=== PATIENT | female | born 1960 | race Caucasian/White ===

== ENCOUNTER 2018-05-08 23:14 | Inpatient (IN) | payer MEDICAID, SELFPAY ==
[~2018-05-08] VITALS: Ht 162.6 cm; Wt 92.7 kg
[2018-05-08] MEDS ORDERED: ASPI1TAB15 (23:26)
[2018-05-08] MEDS ORDERED: BUPR1TAB53 (23:26)
[2018-05-08] MEDS ORDERED: HYDR50CA2 (23:26)
[2018-05-08] MEDS ORDERED: SIMV40TA2 (23:26)
[2018-05-08] MEDS ORDERED: OMEP40CA2 (23:26)
[2018-05-08] MEDS ORDERED: LOSARTAN/HCT (23:26)
[2018-05-08] MEDS ORDERED: FLUOXETINE (23:26)
[2018-05-08] MEDS ORDERED: LAMO100T (23:26)
[2018-05-09] MEDS ORDERED: diazePAM 10 MG TAB PO ONE (00:30)
[2018-05-09] MEDS ORDERED: NORCO, ANEXSIA 5/325MG TABLET (HYDROcodone/ACETAMINOPHEN) PO ONE (00:30)
[2018-05-09] MEDS ORDERED: ISOVUE-370 76% 100ML VIAL (Q9967) As Ordered ONE (01:57)
[2018-05-09] MEDS ORDERED: MORPHINE 4 MG/ML 1ML VIAL/SYRINGE (J2270) IV ONE (02:00)
[2018-05-09 02:35] LABS: BASO % 0.3 % (0.0-1.0); EOS # 0.1 10^3/uL (0.0-0.50); EOS % 1.3 % (0.0-3.0); HEMATOCRIT 42.4 % (36.0-47.0); HEMOGLOBIN 14.3 g/dl (12.0-15.5); LYMPH # 1.6 10^3/uL (1.5-4.5); LYMPH % 15.1 % (24.0-44.0); MEAN CORPUSCULAR HEMOGLOBIN 30.4 pg (27.0-33.0); MEAN CORPUSCULAR HGB CONC 33.7 g/dl (32.0-36.5); MONO # 0.5 10^3/uL (0.0-0.8); MONO % 5.2 % (0.0-5.0); NEUTROPHILS % 77.7 % (36.0-66.0); PLATELET COUNT, AUTOMATED 172 10^3/uL (150-450); RED BLOOD COUNT 4.71 10^6/uL (4.00-5.40); WHITE BLOOD COUNT 10.3 10^3/uL (4.0-10.0)
[2018-05-09 02:52] LABS: BLOOD UREA NITROGEN 12 MG/DL (7-18); C REACTIVE PROTEIN QUANTITATIV 1.41 MG/DL (0.00-0.30); CALCIUM LEVEL 8.7 MG/DL (8.5-10.1); CARBON DIOXIDE LEVEL 25 MEQ/L (21-32); CHLORIDE LEVEL 111 MEQ/L (98-107); CREATININE FOR GFR 0.52 MG/DL (0.55-1.30); GLOMERULAR FILTRATION RATE > 60.0 (>51); GLUCOSE, FASTING 115 MG/DL (70-100); POTASSIUM SERUM 3.9 MEQ/L (3.5-5.1); SODIUM LEVEL 143 MEQ/L (136-145)
[2018-05-09] MEDS ORDERED: LOSARTAN 50 MG TAB PO ONE (04:00)
[2018-05-09] MEDS ORDERED: hydroCHLOROthiazide 12.5 MG CAPSULE PO ONE (04:00)
[2018-05-09] MEDS: MORPHINE 4 MG/ML 1ML VIAL/SYRINGE (J2270) IV PRN ×4 (05:13→19:42)
[2018-05-09] MEDS ORDERED: LAMO100T PO (05:48)
[2018-05-09] MEDS ORDERED: ALEV220T26 PO (05:48)
[2018-05-09] MEDS ORDERED: LOSA100T8 PO (05:48)
[2018-05-09] MEDS ORDERED: ASPI81TAEC PO (05:48)
[2018-05-09] MEDS ORDERED: OMEP40CA2 PO (05:48)
[2018-05-09] MEDS ORDERED: SIMV40TA2 PO (05:48)
[2018-05-09] MEDS ORDERED: HYDR50CA2 PO (05:48)
[2018-05-09] MEDS ORDERED: PROZ10CA7 PO (05:48)
[2018-05-09] MEDS ORDERED: BUPR15TASR PO (05:48)
[2018-05-09] MEDS ORDERED: dexameTHASONE 20 MG/5 ML VIAL (J1100) IV ONE (06:00)
[2018-05-09] MEDS ORDERED: hydrALAZINE INJ 20 MG/ML VIAL IV ONE (06:00)
[2018-05-09] MEDS ORDERED: PIPERACILLIN/TAZOBACTAM SOD 3.375 GM in D5W MINI-BAG PLUS 50 ML IV ONE (06:00)
--- NOTE | 2018-05-09 08:55 | REP ---
CT CERVICAL SPINE WITHOUT CONTRAST: HISTORY: Tenderness. COMPARISON: MR 07/05/2015 There is no acute fracture or subluxation. Disc bulges are present at the C2-3 and C4-5 levels. Disc bugles with associated osteophyte formation are present at the C5-6 and C6-7 levels. There is minimal narrowing of the spinal canal. Uncinate process hypertrophy is present at the C5-6 and C6-7 levels. This produces minimal to mild narrowing of the neural foramina. The remaining neural foramina area patent. The C5-6 and C6-7 intervertebral discs are decreased in height consistent with disc degeneration. Decreased attenuation consistent with edema is present in the retropharyngeal space. There is no mass effect on the renee- and hypopharynx. A 5 mm focus of decreased attenuation is present in the right thyroid lobe. This most likely represents a cyst. IMPRESSION: 1. There is no acute fracture or subluxation. 2. There is cervical spondylosis at the C2-3 and C4-5 through C6-7 levels. 3. There is edema on the retropharyngeal space. There is no mass effect on the renee- and hypopharynx . Electronically Signed by Randell Mariee MD 05/09/2018 09:23 A
[2018-05-09] MEDS ORDERED: LOSARTAN 50 MG TAB PO SCH (09:00)
[2018-05-09] MEDS ORDERED: hydroCHLOROthiazide 12.5 MG CAPSULE PO SCH (09:00)
--- NOTE | 2018-05-09 09:04 | REP ---
CT NECK WITH CONTRAST: HISTORY: Prevertebral fluid. CONTRAST: Isovue 370, 75 mL. Edema is present in the retropharyngeal space at the level of the renee- and hypopharynx. There is no mass effect in the renee- or hypopharynx. The nasopharynx, larynx, and subglottic trachea are normal in appearance. The salivary glands are normal in size and density. A 5 mm hypodensity is present in the right thyroid lobe. This most likely represents a cyst. The left thyroid lobe is normal in size and density. Small lymph nodes less than 1 cm in size are present in the internal jugular chains, posterior triangles, submandibular and submental areas. Atherosclerotic calcification is present at the left carotid bifurcation. The right internal carotid artery courses medially in the retropharyngeal space, a normal variant. Degenerative change is present in the cervical spine. The lung apices are clear. The visualized sinuses are clear. IMPRESSION: 1. There is no neck mass or adenopathy. 2. There is edema in the retropharyngeal space at the level of the renee- and hypopharynx. There is no mass effect. Electronically Signed by Randell Mariee MD 05/09/2018 09:23 A
[2018-05-09] MEDS ORDERED: ACETAMINOPHEN TAB 650MG DOSE (2X325MG) PO PRN (11:00)
[2018-05-09] MEDS ORDERED: ONDANSETRON 4MG/2ML VIAL (J2405) IV PRN (11:00)
[2018-05-09] MEDS ORDERED: hydrOXYzine 50 MG TAB PO PRN (11:15)
[2018-05-09] MEDS ORDERED: PILL CRUSHER/CUTTER 1 EACH XX PRN ×2 (11:30→16:45)
[2018-05-09 12:25] VITALS: BP 152/98
[2018-05-09] MEDS: SIMVASTATIN 40 MG TAB PO SCH (13:33)
[2018-05-09] MEDS: ASPIRIN 81 MG ENTERIC TAB PO SCH (13:33)
[2018-05-09] MEDS: OMEPRAZOLE 20 MG CAP PO SCH (13:33)
[2018-05-09] MEDS: ENOXAPARIN 40 MG/0.4 ML SYRINGE (J1650) SC SCH (13:34)
[2018-05-09 13:45] VITALS: BP 158/88
[2018-05-09] MEDS: FLUoxetine 10 MG CAP PO SCH (14:10)
[2018-05-09] MEDS: buPROPion **SR TABLET** (ZYBAN) 150MG PO SCH ×2 (14:10→21:19)
[2018-05-09] MEDS: lamoTRIgine 100MG TAB PO SCH (14:11)
[2018-05-09] MEDS: hydrOXYzine 50 MG TAB PO SCH (14:11)
[2018-05-09] MEDS: LIDOCAINE 5% (LIDODERM) PATCH TD SCH (14:16)
[2018-05-09] MEDS: tiZANidine 4 MG TAB PO SCH ×3 (14:16→21:19)
--- NOTE | 2018-05-09 15:55 | HPE ---
DATE OF ADMISSION: 05/09/2018 PRIMARY CARE PROVIDER: Joaquina Roe at [facility] CHIEF COMPLAINT: Sore neck and difficulty swallowing. HISTORY OF PRESENT ILLNESS: This is a 57-year-old female who presented to the emergency department last night she was unable to move her neck. She states that Saturday night she felt her neck was very stiff. She took some Aleve and went to bed. when she woke up she could not move her neck. She states the pain was atrocious. She took Aleve however that did not work so she brought herself the emergency room. She states that with this she has been having pain when she moves her jaw and pain down the right side of her head and into her neck, as well as an on and off runny and stuffy nose. She has also had a sore throat for a week and has caught herself gagging multiple times. She has had some dysphasia, as well as difficulty swallowing with a decreased appetite and some nausea for this time as well. She states that occasionally she will feel something like a lump on the side of her right neck; however, it comes and goes. She denies any new sick contacts, recent dental work as she has dentures. She denies any new foods or recent exposures. She denies any fevers, chills or night sweats, vomiting, constipation, diarrhea or abdominal pain. REVIEW OF SYSTEMS: CONSTITUTIONAL: Denies any fevers, chills, unexplained weight loss. Denies night sweats. HEENT: Positive for right sided head pain, on and off stuffy / runny nose, as well as odynophagia and dysphagia. Denies any epistaxis, sinus pain, tinnitus, changes to her vision or epistaxis. She is edentulous. CARDIOVASCULAR: Denies any chest pain, paroxysmal nocturnal dyspnea, orthopnea, edema, palpitation or claudication. RESPIRATORY: Positive for cough with phlegm production, denies any sputum production, no hemoptysis, wheezes or shortness of breath. GASTROINTESTINAL: Positive for difficulty swallowing, as well as nausea. Denies any abdominal pain, vomiting, obstipation, constipation, diarrhea, hematemesis, hematochezia, melena or tenesmus. GENITOURINARY: Denies any incontinence, dysuria, hematuria, nocturia, polyuria. MUSCULOSKELETAL: Positive for right neck pain and stiffness. Denies any other joint swelling, crepitus or decreased range of motion. She does have some laxity to her jaw. INTEGUMENTARY: Denies any new pruritus, rashes, striae, lesions, wounds or erythema. NEUROLOGIC: Denies any changes to sight, smell, hearing, taste, history of seizures, paresthesias, numbness or new motor weakness. She does have a history of headaches. PSYCHIATRIC: Positive for history of bipolar disorder with anxiety and depression. Denies any new paranoia, anhedonia or episodes of betsy. ENDOCRINE: Denies any mood swings, diarrhea, tremor, palpitations or visual disturbances. Denies any constipation, dry skin. No polydipsia. HEMATOLOGIC: Denies any and anemia, purpura, petechiae or easy bruising / bleeding. LYMPHATICS: Denies any new lumps or bumps anywhere besides the right side of her neck where she will have a swelling that comes and goes. PAST MEDICAL HISTORY: 1. Hyperlipidemia. 2. Headaches. 3. Hypertension. 4. Bipolar / anxiety / depression. 5. Gastroesophageal reflux disease. HOME MEDICATIONS: - aspirin 81 mg by mouth daily - simvastatin 40 mg by mouth daily - Aleve 440 mg by mouth twice a day as needed - losartan 100 mg / hydrochlorothiazide 12.5 mg by mouth daily - lamotrigine 200 mg by mouth daily - bupropion 150 mg by mouth twice a day - paroxetine 30 mg by mouth daily - hydroxyzine 50 mg by mouth daily and 50 mg by mouth at night - omeprazole 40 mg by mouth daily PAST SURGICAL HISTORY: The patient had a tubal ligation 2 years ago and a gastric sleeve in 2011. ALLERGIES: LISINOPRIL. SOCIAL HISTORY: The patient is a current smoker. She smokes less than one-quarter of a pack per day; however, used to smoke one and half packs per day for about 40 years giving her a 60 pack-year smoking history. She is and lives with her and her dog who is Spaniel mix. She denies any alcohol or drug use. She denies any recent travel. 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 PHYSICAL EXAMINATION: Vitals: Temperature is 98.3, pulse is 80 and regular, respiratory rate 17, blood pressure 164/103, pulse oximetry is 95% on room air. General: Middle-aged female in no acute distress lying on the stretcher. She does look somewhat fatigued. HEENT: Atraumatic, normocephalic. Extraocular eye movements are intact. Pupils equal, round and reactive to light. Posterior pharynx is free of exudate or erythema and the uvula rises symmetrically. The patient is edentulous. Tympanic membranes are visualized bilaterally and have a good cone of light without erythema or exudate behind them. There is some cerumen in the external auditory canals bilaterally. NECK: Hypertonicity is noted in the right side. I do not appreciate any lymphadenopathy. The head and neck has no appreciable masses. There is no thyromegaly. LUNGS: Clear to auscultation bilaterally. No wheezes, rhonchi or rales. HEART: Regular rate and rhythm. No murmurs, gallops or rubs. ABDOMEN: Obese, soft, normoactive bowel sounds. No tenderness to palpation in all four quadrants. BACK: Symmetric and straight. No abnormalities. No costovertebral angle tenderness bilaterally. EXTREMITIES: No clubbing, cyanosis or edema. Pulses are good in all four extremities. NEUROLOGIC: Awake, alert and oriented times three. Cranial nerves II-XII grossly intact. Sensation is intact bilaterally without any focal neurological deficits. Muscle strength is 5/5 in all four extremities. LABORATORY DATA: CBC: WBC 10.3, hemoglobin 14.3, hematocrit 42.4, platelets 172. Differential 78% neutrophils, 15% lymphocytes, 5% monocytes. Chemistry: Sodium 143, potassium 3.9, chloride 111, carbon dioxide 25, BUN 12, creatinine 0.52, fasting glucose 115, CRP 1.41. Microbiology: Group A Streptococcus screen is pending. Blood cultures times two are pending. IMAGING STUDIES: CT of the spine without contrast showed a 5 mm right thyroid cyst, cervical spondylosis at C2-C3, C4-C5 through C6-7, as well as a retropharyngeal edema without mass effect. CT neck showed a 5 mm right thyroid cyst, as well as retropharyngeal edema at the level of the oropharynx and hypopharynx without mass effect. ASSESSMENT: This is a 57-year-old female who is being admitted with retropharyngeal edema. She also has next stiffness and odynophagia. PLAN: 1. Retropharyngeal edema. Dr. Wilder Anthony from ENT has been consulted and we appreciate his help. For now, we will put the patient on unison every 6 hours, as most likely culprit for this may be mouth jocelynn, infectious. Differential also includes inflammatory process. I have given her pain medications and put her on a soft mechanical diet for now. 2. Neck pain. Possibly related to the retropharyngeal edema, but she also has hypertonicity of her neck muscles on physical exam. Her neck pain and stiffness may be musculoskeletal in origin, we will provide her with a muscle relaxer as well as a heat pad. 3. Tobacco dependence. Nicotine patch was offered and refused, as the patient is trying to quit smoking. 4. Hypertension. Continue the patient's home medications of losartan and hydrochlorothiazide. 5. Headaches. We will give the patient Tylenol as needed and morphine if her neck stiffness is very severe. 6. Hyperlipidemia. Continue her statin. 7. Bipolar / anxiety / depression. Continue her home lamotrigine, bupropion, fluoxetine, and hydroxyzine. 8. Gastroesophageal reflux disease. Continue the patient on omeprazole. 9. Deep vein thrombosis (DVT) prophylaxis. Lovenox. DISPOSITION: The patient will be admitted to Dr. Walters's service as an inpatient as we expect more than two midnights. CODE STATUS: The patient is FULL CODE. My faculty preceptor for this patient encounter was physically present during the encounter and was fully available. All aspects of the patient interview, examination, medical decision making process, and medical care plan development were reviewed and approved by the faculty preceptor. The faculty preceptor is aware and concurs with the plan as stated in the body of this note and will attest to such by his/her co-signature.
[2018-05-09 16:00] VITALS: BP 150/80
[2018-05-09] MEDS: AMPICILLIN SOD/SULBACTAM SOD 3 GM in D5W MINI-BAG PLUS 100 ML IV SCH (18:44)
[2018-05-09 20:00] VITALS: BP 138/89
[2018-05-09] MEDS ORDERED: **NOTE PATIENT COMMENT** MISC XX SCH (21:00)
[2018-05-10] VITALS: BP 127/85
[2018-05-10 04:00] VITALS: BP 164/91
[2018-05-10] MEDS: MORPHINE 4 MG/ML 1ML VIAL/SYRINGE (J2270) IV PRN ×2 (04:01)
[2018-05-10] MEDS: AMPICILLIN SOD/SULBACTAM SOD 3 GM in D5W MINI-BAG PLUS 100 ML IV SCH ×5 (06:39→18:21)
[2018-05-10 07:18] LABS: HEMATOCRIT 41.3 % (36.0-47.0); MEAN CORPUSCULAR HEMOGLOBIN 29.9 pg (27.0-33.0); MEAN CORPUSCULAR HGB CONC 33.9 g/dl (32.0-36.5); MEAN CORPUSCULAR VOLUME 88.1 fl (80.0-96.0); PLATELET COUNT, AUTOMATED 179 10^3/uL (150-450); RED BLOOD COUNT 4.69 10^6/uL (4.00-5.40); WHITE BLOOD COUNT 16.8 10^3/uL (4.0-10.0)
[2018-05-10 07:49] LABS: BLOOD UREA NITROGEN 10 MG/DL (7-18); CALCIUM LEVEL 8.9 MG/DL (8.5-10.1); CARBON DIOXIDE LEVEL 27 MEQ/L (21-32); CHLORIDE LEVEL 107 MEQ/L (98-107); CREATININE FOR GFR 0.59 MG/DL (0.55-1.30); GLOMERULAR FILTRATION RATE > 60.0 (>51); GLUCOSE, FASTING 102 MG/DL (70-100); POTASSIUM SERUM 3.7 MEQ/L (3.5-5.1); SODIUM LEVEL 143 MEQ/L (136-145)
[2018-05-10 08:00] VITALS: BP 169/89
[2018-05-10] MEDS: hydroCHLOROthiazide 12.5 MG CAPSULE PO SCH (08:33)
[2018-05-10] MEDS: ASPIRIN 81 MG ENTERIC TAB PO SCH (08:33)
[2018-05-10] MEDS: lamoTRIgine 100MG TAB PO SCH (08:33)
[2018-05-10] MEDS: FLUoxetine 10 MG CAP PO SCH (08:33)
[2018-05-10] MEDS: hydrOXYzine 50 MG TAB PO SCH (08:34)
[2018-05-10] MEDS: SIMVASTATIN 40 MG TAB PO SCH (08:34)
[2018-05-10] MEDS: OMEPRAZOLE 20 MG CAP PO SCH (08:34)
[2018-05-10] MEDS: ENOXAPARIN 40 MG/0.4 ML SYRINGE (J1650) SC SCH (08:35)
[2018-05-10] MEDS: LIDOCAINE 5% (LIDODERM) PATCH TD SCH (08:35)
[2018-05-10] MEDS: LOSARTAN 50 MG TAB PO SCH (08:35)
[2018-05-10] MEDS: tiZANidine 4 MG TAB PO SCH ×4 (08:35→20:39)
[2018-05-10] MEDS: buPROPion **SR TABLET** (ZYBAN) 150MG PO SCH ×2 (08:45→20:40)
[2018-05-10] MEDS ORDERED: FLUBLOK(EGG FREE)(QUAD)INFLUENZA VACC 0.5ML SYRINGE (90682)18YRS&OLDER IM ONE (09:00)
[2018-05-10] MEDS: PERCOCET 5MG/325MG TAB PO PRN ×2 (10:20→16:23)
[2018-05-10] MEDS: DICLOFENAC EPOLAMINE 1.3 % PATCH TOP SCH ×2 (10:20→20:40)
--- NOTE | 2018-05-10 13:34 | IPNPDOC ---
Text Note Date of Service The patient was seen on 05/10/18. NOTE SUBJECTIVE: Patient is seen at bedside. She is still having difficulty swallowing as well as pain with swallowing. She is still having neck pain, especially on the left side now. The pain on the right side of her neck has improved slightly. She still has decreased range of motion in her neck, but denies any fevers, chills, nausea, vomiting, diarrhea, constipation, shortness of breath, or cough. OBJECTIVE: Vitals: See below General: Middle-aged female in no acute distress HEENT: Atraumatic, normocephalic. Extraocular eye movements are intact. Pupils equal, round and reactive to light. Posterior pharynx is free of exudate or erythema and the uvula rises symmetrically. The patient is edentulous. Tympanic membranes are visualized bilaterally and have a good cone of light without erythema or exudate behind them. There is some cerumen in the external auditory canals bilaterally. NECK: Hypertonicity is noted in the posterior aspect of the neck. I do not appreciate any lymphadenopathy. The head and neck has no appreciable masses. There is no thyromegaly. LUNGS: Clear to auscultation bilaterally. No wheezes, rhonchi or rales. HEART: Regular rate and rhythm. No murmurs, gallops or rubs. ABDOMEN: Obese, soft, normoactive bowel sounds. No tenderness to palpation in all four quadrants. EXTREMITIES: No clubbing, cyanosis or edema. Pulses are good in all four extremities. NEUROLOGIC: Awake, alert and oriented times three. LABORATORY DATA: see below ASSESSMENT: This is a 57-year-old female who is being admitted with retropharyngeal edema. She also has next stiffness and odynophagia. PLAN: 1. Retropharyngeal edema, suspicious for retropharyngeal abscess. Dr. Wilder Anthony from ENT has been consulted and we appreciate his help. For now, we will put the patient on Unasyn every 6 hours, as most likely culprit for this may be mouth jocelynn, infectious. Differential also includes inflammatory process. Continue with muscle relaxants, pain medications and soft mechanical diet for now. 2. Neck pain. Possibly related to the retropharyngeal edema, but she also has hypertonicity of her neck muscles on physical exam. Her neck pain and stiffness may be musculoskeletal in origin, we will provide her with a muscle relaxer as well as a heat pad. 3. Tobacco dependence. Nicotine patch was offered and refused, as the patient is trying to quit smoking. 4. Hypertension. Continue the patient's home medications of losartan and hydrochlorothiazide. 5. Headaches. Patient is on multiple different types of pain medications. She states her headache is better today. 6. Hyperlipidemia. Continue her statin. 7. Bipolar / anxiety / depression. Continue her home lamotrigine, bupropion, fluoxetine, and hydroxyzine. 8. Gastroesophageal reflux disease. Continue the patient on omeprazole. 9. Deep vein thrombosis (DVT) prophylaxis. Lovenox. DISPOSITION: Pending clinical improvement VS,Hero, I+O VS, Hero, I+O Laboratory Tests 05/10/18 06:50 Red Blood Count 4.69, Mean Corpuscular Volume 88.1, Mean Corpuscular Hemoglobin 29.9, Mean Corpuscular Hemoglobin Concent 33.9, Red Cell Distribution Width 13.1, Calcium Level 8.9 Vital Signs Date Time Temp Pulse Resp B/P (MAP) Pulse Ox O2 Delivery O2 Flow Rate FiO2 05/10/18 10:50 99 20 94 05/10/18 08:35 169/89 05/10/18 08:00 97.9 05/09/18 12:05 Room Air I&O- Last 24 Hours up to 6 AM 05/10/18 06:00 Intake Total 1230 ml Output Total 1550 ml Balance -320 ml GME ATTESTATION GME ATTESTATION My faculty preceptor for this patient encounter was physically present during the encounter and was fully available. All aspects of the patient interview, examination, medical decision making process, and medical care plan development were reviewed and approved by the faculty preceptor. The faculty preceptor is aware and concurs with the plan as stated in the body of this note and will a ttest to such by his/her cosignature. LENI RIDDLE DO May 10, 2018 13:34
[2018-05-10] MEDS: IBUPROFEN 800 MG TAB PO PRN ×2 (14:28→20:40)
[2018-05-10 16:00] VITALS: BP 170/74
[2018-05-10 20:00] VITALS: BP 122/56
[2018-05-10] MEDS ORDERED: AUGMENTIN 875 MG TAB PO SCH (21:00)
[2018-05-11] VITALS: BP 105/64
[2018-05-11] MEDS: AMPICILLIN SOD/SULBACTAM SOD 3 GM in D5W MINI-BAG PLUS 100 ML IV SCH ×4 (00:37→18:05)
[2018-05-11] MEDS: PERCOCET 5MG/325MG TAB PO PRN ×4 (00:37→20:49)
[2018-05-11] MEDS: IBUPROFEN 800 MG TAB PO PRN ×2 (06:44→18:05)
[2018-05-11 07:22] LABS: HEMATOCRIT 40.8 % (36.0-47.0); HEMOGLOBIN 13.5 g/dl (12.0-15.5); MEAN CORPUSCULAR HEMOGLOBIN 30.3 pg (27.0-33.0); MEAN CORPUSCULAR HGB CONC 33.1 g/dl (32.0-36.5); MEAN CORPUSCULAR VOLUME 91.5 fl (80.0-96.0); PLATELET COUNT, AUTOMATED 127 10^3/uL (150-450); RED BLOOD COUNT 4.46 10^6/uL (4.00-5.40); WHITE BLOOD COUNT 6.1 10^3/uL (4.0-10.0)
[2018-05-11] MEDS: tiZANidine 4 MG TAB PO SCH (07:53)
[2018-05-11] MEDS: hydroCHLOROthiazide 12.5 MG CAPSULE PO SCH (07:53)
[2018-05-11] MEDS: FLUoxetine 10 MG CAP PO SCH (07:53)
[2018-05-11] MEDS: lamoTRIgine 100MG TAB PO SCH (07:54)
[2018-05-11] MEDS: LOSARTAN 50 MG TAB PO SCH (07:54)
[2018-05-11] MEDS: hydrOXYzine 50 MG TAB PO SCH (07:54)
[2018-05-11] MEDS: buPROPion **SR TABLET** (ZYBAN) 150MG PO SCH ×2 (07:56→20:28)
[2018-05-11 07:57] LABS: BLOOD UREA NITROGEN 16 MG/DL (7-18); CALCIUM LEVEL 8.5 MG/DL (8.5-10.1); CARBON DIOXIDE LEVEL 31 MEQ/L (21-32); CHLORIDE LEVEL 106 MEQ/L (98-107); CREATININE FOR GFR 0.71 MG/DL (0.55-1.30); GLOMERULAR FILTRATION RATE > 60.0 (>51); GLUCOSE, FASTING 89 MG/DL (70-100); POTASSIUM SERUM 3.5 MEQ/L (3.5-5.1); SODIUM LEVEL 142 MEQ/L (136-145)
[2018-05-11] MEDS: ASPIRIN 81 MG ENTERIC TAB PO SCH (07:57)
[2018-05-11] MEDS: SIMVASTATIN 40 MG TAB PO SCH (07:57)
[2018-05-11] MEDS: ENOXAPARIN 40 MG/0.4 ML SYRINGE (J1650) SC SCH (07:57)
[2018-05-11] MEDS: OMEPRAZOLE 20 MG CAP PO SCH (07:57)
[2018-05-11] MEDS: DICLOFENAC EPOLAMINE 1.3 % PATCH TOP SCH ×2 (07:58→20:28)
[2018-05-11 08:00] VITALS: BP 184/93
[2018-05-11 12:00] VITALS: BP 157/90
--- NOTE | 2018-05-11 12:34 | IPNPDOC ---
Text Note Date of Service The patient was seen on 05/11/18. NOTE SUBJECTIVE: Patient is seen at bedside. She is still having difficulty swallow ing as well as pain with swallowing. She is still having neck pain, especially on the left side now. The pain on the right side of her neck has improved slightly. She still has decreased range of motion in her neck, but denies any fevers, chills, nausea, vomiting, diarrhea, constipation, shortness of breath, or cough. OBJECTIVE: Vitals: See below General: Middle-aged female in no acute distress HEENT: Atraumatic, normocephalic. Extraocular eye movements are intact. Pupils equal, round and reactive to light. Posterior pharynx is free of exudate or erythema and the uvula rises symmetrically. The patient is edentulous. Tympanic membranes are visualized bilaterally and have a good cone of light without erythema or exudate behind them. There is some cerumen in the external auditory canals bilaterally. NECK: Hypertonicity is noted in the posterior aspect of the neck. I do not appreciate any lymphadenopathy. The head and neck has no appreciable masses. There is no thyromegaly. LUNGS: Clear to auscultation bilaterally. No wheezes, rhonchi or rales. HEART: Regular rate and rhythm. No murmurs, gallops or rubs. ABDOMEN: Obese, soft, normoactive bowel sounds. No tenderness to palpation in all four quadrants. EXTREMITIES: No clubbing, cyanosis or edema. Pulses are good in all four extremities. NEUROLOGIC: Awake, alert and oriented times three. LABORATORY DATA: see below ASSESSMENT: This is a 57-year-old female who is being admitted with retropharyngeal edema. She also has next stiffness and odynophagia. PLAN: Retropharyngeal edema, suspicious for retropharyngeal infection or inflammation: Dr. Wilder Anthony from ENT has been consulted and we appreciate his help. For now, we will put the patient on Unasyn every 6 hours, as most likely culprit for this may be mouth jocelynn, infectious. Differential also includes inflammatory process. Continue with muscle relaxants, pain medications and soft mechanical diet for now. Continue unasyn. Neck pain. Possibly related to the retropharyngeal edema, but she also has hypertonicity of her neck muscles on physical exam. Her neck pain and stiffness may be musculoskeletal in origin, we will provide her with a muscle relaxer as well as a heat pad. Tobacco dependence. Nicotine patch was offered and refused, as the patient is trying to quit smoking. Hypertension. Continue the patient's home medications of losartan and hydrochlorothiazide. Headaches. Patient is on multiple different types of pain medications. She states her headache is better today. Hyperlipidemia. Continue her statin. Bipolar / anxiety / depression. Continue her home lamotrigine, bupropion, fluoxetine, and hydroxyzine. Gastroesophageal reflux disease. Continue the patient on omeprazole. Deep vein thrombosis (DVT) prophylaxis. Lovenox. DISPOSITION: Pending clinical improvement VS,Hero, I+O VS, Hero, I+O Laboratory Tests 05/11/18 07:02 Red Blood Count 4.46, Mean Corpuscular Volume 91.5, Mean Corpuscular Hemoglobin 30.3, Mean Corpuscular Hemoglobin Concent 33.1, Red Cell Distribution Width 13.4, Calcium Level 8.5 Vital Signs Date Time Temp Pulse Resp B/P (MAP) Pulse Ox O2 Delivery O2 Flow Rate FiO2 05/11/18 08:00 97.7 75 18 184/93 (123) 96 05/09/18 12:05 Room Air I&O- Last 24 Hours up to 6 AM 05/11/18 06:00 Intake Total 1000 ml Output Total 1750 ml Balance -750 ml EVELIA BRAMBILA MD May 11, 2018 12:34
[2018-05-11 16:00] VITALS: BP 167/94
[2018-05-11 20:00] VITALS: BP 131/76
[2018-05-12] VITALS: BP 142/82
[2018-05-12] MEDS: AMPICILLIN SOD/SULBACTAM SOD 3 GM in D5W MINI-BAG PLUS 100 ML IV SCH ×4 (00:26→18:25)
[2018-05-12] MEDS: IBUPROFEN 800 MG TAB PO PRN ×2 (00:37→18:28)
[2018-05-12 07:28] LABS: HEMATOCRIT 38.6 % (36.0-47.0); MEAN CORPUSCULAR HEMOGLOBIN 30.2 pg (27.0-33.0); MEAN CORPUSCULAR HGB CONC 33.7 g/dl (32.0-36.5); MEAN CORPUSCULAR VOLUME 89.6 fl (80.0-96.0); PLATELET COUNT, AUTOMATED 148 10^3/uL (150-450); RED BLOOD COUNT 4.31 10^6/uL (4.00-5.40); WHITE BLOOD COUNT 4.5 10^3/uL (4.0-10.0)
[2018-05-12 07:55] LABS: BLOOD UREA NITROGEN 13 MG/DL (7-18); CALCIUM LEVEL 8.1 MG/DL (8.5-10.1); CARBON DIOXIDE LEVEL 27 MEQ/L (21-32); CHLORIDE LEVEL 107 MEQ/L (98-107); CREATININE FOR GFR 0.76 MG/DL (0.55-1.30); GLOMERULAR FILTRATION RATE > 60.0 (>51); GLUCOSE, FASTING 149 MG/DL (70-100); POTASSIUM SERUM 3.2 MEQ/L (3.5-5.1); SODIUM LEVEL 142 MEQ/L (136-145)
[2018-05-12 08:15] VITALS: BP 138/96
[2018-05-12] MEDS: OMEPRAZOLE 20 MG CAP PO SCH (08:30)
[2018-05-12] MEDS: SIMVASTATIN 40 MG TAB PO SCH (08:30)
[2018-05-12] MEDS: ASPIRIN 81 MG ENTERIC TAB PO SCH (08:30)
[2018-05-12] MEDS: hydroCHLOROthiazide 12.5 MG CAPSULE PO SCH (08:31)
[2018-05-12] MEDS: buPROPion **SR TABLET** (ZYBAN) 150MG PO SCH ×2 (08:32→20:06)
[2018-05-12] MEDS: hydrOXYzine 50 MG TAB PO SCH (08:32)
[2018-05-12] MEDS: lamoTRIgine 100MG TAB PO SCH (08:33)
[2018-05-12] MEDS: FLUoxetine 10 MG CAP PO SCH (08:33)
[2018-05-12] MEDS: LOSARTAN 50 MG TAB PO SCH (08:34)
[2018-05-12] MEDS: ENOXAPARIN 40 MG/0.4 ML SYRINGE (J1650) SC SCH (08:35)
[2018-05-12] MEDS: DICLOFENAC EPOLAMINE 1.3 % PATCH TOP SCH ×3 (08:35→20:06)
[2018-05-12] MEDS: PERCOCET 5MG/325MG TAB PO PRN ×2 (08:42→20:08)
--- NOTE | 2018-05-12 11:27 | IPNPDOC ---
Text Note Date of Service The patient was seen on 05/12/18. NOTE SUBJECTIVE: Patient was interviewed and examined today at bedside. Her vitals have remained stable. She reports that her pain continued to persist and has failed to improve any since her initial admission. She states that her initial discomfort began on 05/08 with R-sided cervical neck pain that radiated anteriorly over the top of the R side of her head. This morning, she notes that this pain has started occurring on the L-side as well. She continues to cite difficulty with L/R rotation and extension of her cervical spine. She continues to complain of nasal congestion, but denies any other symptomatology. OBJECTIVE: Vitals: See below General: Middle-aged female in no acute distress HEENT: Atraumatic, normocephalic. Extraocular eye movements are intact. Pupils equal, round and reactive to light. Posterior pharynx is free of exudate or erythema and the uvula rises symmetrically. The patient is edentulous, and utilizes dentures. NECK: Hypertonicity is noted in the posterior aspect of the neck bilaterally. Tender to palpation. Posterior occiput tender bilaterally. I do not appreciate any lymphadenopathy. Anterior L-sided cervical tenderness. The head and neck has no appreciable masses. No increased discomfort with axial loading. LUNGS: Clear to auscultation bilaterally. No wheezes, rhonchi or rales. HEART: Regular rate and rhythm. No murmurs, gallops or rubs. ABDOMEN: Obese, soft, normoactive bowel sounds. No tenderness to palpation in all four quadrants. EXTREMITIES: No clubbing, cyanosis or edema. Pulses are good in all four extremities. NEUROLOGIC: Awake, alert and oriented times three. LABORATORY DATA: see below ASSESSMENT: This is a 57-year-old female who is being admitted with retropharyngeal edema. She also has next stiffness and odynophagia. PLAN: 1. Retropharyngeal edema, suspicious for retropharyngeal infection or inflammation: Dr. Wilder Anthony from ENT has been consulted and we appreciate his help. For now, we will continue the patient patient on Unasyn every 6 hours to cover for GI jocelynn. Plan to repeat head CT given the new bilateral presentation of the patient's pain. 2. Neck pain. Possibly related to the retropharyngeal edema, but she also has hypertonicity of her neck muscles on physical exam bilaterally. Her neck pain and stiffness may be musculoskeletal in origin. Patient has been utilizing heating pad and muscle relaxer without relief. Continue on muscle relaxers. 3. Tobacco dependence. Nicotine patch was offered and refused, as the patient is trying to quit smoking. 4. Hypertension. Continue the patient's home medications of losartan and hydrochlorothiazide. 5. Headaches. Patient is on multiple different types of pain medications. She states her headache is better today. 6. Hyperlipidemia. Continue her statin. 7. Bipolar / anxiety / depression. Continue her home lamotrigine, bupropion, fluoxetine, and hydroxyzine. 8. Gastroesophageal reflux disease. Continue the patient on omeprazole. 9. Deep vein thrombosis (DVT) prophylaxis: Lovenox. DISPOSITION: Pending clinical improvement VS,Hero, I+O VS, Hero, I+O Laboratory Tests 05/12/18 06:59 Red Blood Count 4.31, Mean Corpuscular Volume 89.6, Mean Corpuscular Hemoglobin 30.2, Mean Corpuscular Hemoglobin Concent 33.7, Red Cell Distribution Width 13.3, Calcium Level 8.1 L Vital Signs Date Time Temp Pulse Resp B/P (MAP) Pulse Ox O2 Delivery O2 Flow Rate FiO2 05/12/18 09:20 16 05/12/18 08:34 138/96 05/12/18 08:15 97.8 96 96 05/09/18 12:05 Room Air I&O- Last 24 Hours up to 6 AM 05/12/18 06:00 Intake Total 1160 ml Output Total 950 ml Balance 210 ml GME ATTESTATION GME ATTESTATION My faculty preceptor for this patient encounter was physically present during the encounter and was fully available. All aspects of the patient interview, examination, medical decision making process, and medical care plan development were reviewed and approved by the faculty preceptor. The faculty preceptor is aware and concurs with the plan as stated in the body of this note and will attest to such by his/her cosignature. MIKE SORIANO DO May 12, 2018 11:27
[2018-05-12] MEDS ORDERED: ISOVUE-370 76% 100ML VIAL (Q9967) As Ordered ONE (13:18)
--- NOTE | 2018-05-12 14:16 | REP ---
SOFT-TISSUE NECK CT STUDY WITH IV CONTRAST: HISTORY: Retropharyngeal cellulitis. Comparison CT study is from May 09, 2018. CT CONTRAST DOSE: 75 mL of intravenous Isovue [address] FINDINGS: There is a small air-fluid level in the right maxillary sinus which is a new finding. There is mild thickening of a few of the right ethmoid air cells as well. No intraorbital lesion is seen. Parotid and submandibular glands are normal and symmetric. There is no evidence of retropharyngeal abscess or peritonsillar abscess. The edema pattern in the retropharyngeal soft tissues appears somewhat less prominent. The right internal carotid artery is tortuous and extends into the retropharyngeal soft tissues just to the right of midline. This is unchanged. There is no evidence of adenopathy in the neck. Thyroid lobes are normal and symmetric. The lung apices are unremarkable. There are degenerative spondylosis changes in the cervical spine, most pronounced at C5-6, C6-7. There is degenerative soft tissue calcification and ossification along with osteoarthritic changes associated with the articulation between the dens and the anterior arch of the one. No other abnormal calcification is seen. IMPRESSION: No evidence of abscess. Somewhat improved retropharyngeal soft tissue edema pattern. Tortuous right internal carotid artery in a retropharyngeal position. Degenerative spondylosis changes in the cervical spine including calcification and ossification associated with the C1-2 articulation anteriorly. Electronically Signed by Steven Matthew MD 05/12/2018 03:23 P
[2018-05-12 16:00] VITALS: BP_SYST 162; BP_SYST 185; BP_DIAS 88; BP_DIAS 96
--- NOTE | 2018-05-12 16:08 | CR ---
DATE OF CONSULTATION: 05/12/2018 CHIEF COMPLAINT: Stiff neck. HISTORY OF PRESENT ILLNESS: This is a 57-year-old woman who presented to the [facility] Emergency Department (ED) due to neck stiffness. She noticed the onset of the stiffness of the neck on Saturday evening. She tried nonsteroidal antiinflammatory drugs (NSAIDs) including Aleve without improvement of the pain in the neck. She presented to the emergency department for further evaluation. The patient denies loss of consciousness. She has no recent trauma to the head and neck area. She did have a recent history of sore throat for about a week. She denies visual disturbance. She had some swallowing difficulty. She denies fever, chills, night sweats, dyspepsia, diarrhea, or abdominal pain. REVIEW OF SYSTEMS: Reviewed and noted as above. PAST MEDICAL HISTORY: 1. Hypertension. 2. Hyperlipidemia. 3. Gastroesophageal reflux disease (GERD). 4. Bipolar/anxiety/depression. MEDICATIONS: Aspirin, simvastatin, losartan, bupropion, paroxetine, hydroxyzine, omeprazole, and lamotrigine. PAST SURGICAL HISTORY: No history of head and neck surgery. She has had tubal ligation two years ago and gastric sleeve in 2011. ALLERGIES: LISINOPRIL. SOCIAL HISTORY: The patient is a smoker for 40 years. She has a total of 60-pack year history of smoking. She is a non-alcohol user. No history of drug abuse. PHYSICAL EXAMINATION: The patient appears in mild distress. VITAL SIGNS: Stable, afebrile. EARS: Normal external ear canal. Normal pinna. FACE: Normocephalic. Symmetrical facial motion and strength. NOSE: Normal external nasal anatomy. No active purulent nasal discharge. ORAL: No trismus. Oral cavity moist. Tongue mobile. No mucosal lesion in the oral cavity. Posterior pharyngeal wall without asymmetry. No mucosal ulceration. No break in the mucosa on the posterior pharyngeal wall. NECK: No palpable cervical lymphadenopathy. Trachea midline. No thyromegaly. MUSCULOSKELETAL: Limited neck flexion. Able to rotate the neck to the right and the left. Able to extend the neck. IMAGING: CT neck done on 05/09/2018 images and report reviewed. Edema in the retropharyngeal area without mass effect. Evidence of cervical spondylosis at C2-3, C4-5, and C6-7. A 5 mm right thyroid cyst. IMPRESSION: A 57-year-old woman with retropharyngeal edema. The patient will be admitted under the hospitalist service. We will start the patient on Unasyn IV. I will follow the patient while she is in the hospital.
[2018-05-12 20:00] VITALS: BP 178/88
[2018-05-13] MEDS: AMPICILLIN SOD/SULBACTAM SOD 3 GM in D5W MINI-BAG PLUS 100 ML IV SCH ×4 (00:50→18:19)
[2018-05-13 00:55] VITALS: BP 158/102
[2018-05-13 07:10] LABS: HEMATOCRIT 38.6 % (36.0-47.0); HEMOGLOBIN 13.3 g/dl (12.0-15.5); MEAN CORPUSCULAR HEMOGLOBIN 30.2 pg (27.0-33.0); MEAN CORPUSCULAR HGB CONC 34.5 g/dl (32.0-36.5); MEAN CORPUSCULAR VOLUME 87.5 fl (80.0-96.0); PLATELET COUNT, AUTOMATED 155 10^3/uL (150-450); RED BLOOD COUNT 4.41 10^6/uL (4.00-5.40); WHITE BLOOD COUNT 4.7 10^3/uL (4.0-10.0)
[2018-05-13] MEDS: hydroCHLOROthiazide 12.5 MG CAPSULE PO SCH (07:55)
[2018-05-13] MEDS: OMEPRAZOLE 20 MG CAP PO SCH (07:55)
[2018-05-13] MEDS: ASPIRIN 81 MG ENTERIC TAB PO SCH (07:55)
[2018-05-13] MEDS: buPROPion **SR TABLET** (ZYBAN) 150MG PO SCH ×2 (07:55→20:10)
[2018-05-13] MEDS: hydrOXYzine 50 MG TAB PO SCH (07:55)
[2018-05-13] MEDS: SIMVASTATIN 40 MG TAB PO SCH (07:55)
[2018-05-13] MEDS: lamoTRIgine 100MG TAB PO SCH (07:56)
[2018-05-13] MEDS: FLUoxetine 10 MG CAP PO SCH (07:56)
[2018-05-13] MEDS: LOSARTAN 50 MG TAB PO SCH (07:56)
[2018-05-13] MEDS: ENOXAPARIN 40 MG/0.4 ML SYRINGE (J1650) SC SCH (07:57)
[2018-05-13] MEDS: DICLOFENAC EPOLAMINE 1.3 % PATCH TOP SCH ×2 (07:57→20:14)
[2018-05-13 08:00] VITALS: BP 185/106
[2018-05-13 08:21] LABS: BLOOD UREA NITROGEN 12 MG/DL (7-18); CALCIUM LEVEL 8.3 MG/DL (8.5-10.1); CARBON DIOXIDE LEVEL 29 MEQ/L (21-32); CHLORIDE LEVEL 104 MEQ/L (98-107); CREATININE FOR GFR 0.65 MG/DL (0.55-1.30); GLOMERULAR FILTRATION RATE > 60.0 (>51); GLUCOSE, FASTING 86 MG/DL (70-100); POTASSIUM SERUM 3.8 MEQ/L (3.5-5.1); SODIUM LEVEL 141 MEQ/L (136-145)
[2018-05-13] MEDS: IBUPROFEN 800 MG TAB PO PRN (09:20)
[2018-05-13] MEDS ORDERED: cloNIDine 0.1 MG TAB PO ONE ×2 (10:00→13:00)
[2018-05-13 10:10] VITALS: BP 158/98
[2018-05-13] MEDS: PERCOCET 5MG/325MG TAB PO PRN ×2 (10:35→20:12)
--- NOTE | 2018-05-13 11:49 | IPNPDOC ---
Text Note Date of Service The patient was seen on 05/13/18. NOTE SUBJECTIVE: Patient was interviewed and examined at bedside this morning. Patient reports improvement in her neck pain. She also reports improvement in her range of motion specifically referring to rotation and extension of her neck. She feels as though she is ready to be discharged to return home with follow-up with her primary care physician. Patient does have some anxiety about returning to work. 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 She otherwise denies any acute symptomatology. ROS: GENERAL: Complains of some generalized fatigue, denies fever, chills and weight loss HEAD: Denies headache or history of trauma. EENT: Denies throat pain, difficulty swallowing, ear ache. NECK: Continues to complain of posterior CARDIO: Denies chest pain, pressure, palpitations RESPIRATORY: Denies shortness of breath, trouble breathing, cough, wheezing. D enies pleuritic chest pain. GI: Denies N/V, reflux symptoms, difficulty stooling. : Denies difficulty urinating. MSK: Complains of tight painful paracervical musculature bilaterally-somewhat improved from yesterday, denies shoulder/arm muscle weakness. NEURO: Denies numbness/paresthesias in her neck or upper extremities. OBJECTIVE: Vitals: See below General: Middle-aged female in no acute distress HEENT: Atraumatic, normocephalic. Extraocular eye movements are intact. Pupils equal, round and reactive to light. Posterior pharynx is free of exudate or erythema and the uvula rises symmetrically. The patient is edentulous, and utilizes upper and lower dentures. NECK: Hypertonicity is noted in the posterior aspect of the neck bilaterally. Tender to palpation. Posterior occiput tender bilaterally. I do not appreciate any lymphadenopathy. The head and neck has no appreciable masses. No increased discomfort with axial loading. Improved range of motion specifically lateral rotation and extension of the C-spine. LUNGS: Clear to auscultation bilaterally. No wheezes, rhonchi or rales. HEART: Regular rate and rhythm. No murmurs, gallops or rubs. ABDOMEN: Obese, soft, normoactive bowel sounds. No tenderness to palpation in all four quadrants. EXTREMITIES: No clubbing, cyanosis or edema. Pulses are good in all four extremities. NEUROLOGIC: Awake, alert and oriented times three. LABORATORY DATA: see below IMAGING: Repeat neck CT performed on 05/12/18: No evidence of abscess with somewhat improved retropharyngeal soft tissue edema. Wrist right internal carotid artery and a retropharyngeal position. Degenerative spondylosis changes in the cervical spine including calcification ossification associated with C1-C2 articulation anteriorly. ASSESSMENT: This is a 57-year-old female who is being admitted with retropharyngeal edema and cervical paraspinal hypertonicity. PLAN: 1. Retropharyngeal edema: Resolving per repeat CT. Patient is currently continuing on IV Unasyn. Awaiting recommendations from Dr. Anthony regarding continued PO antibiotic therapy prior to discharge. 2. Neck pain. Possibly related to the retropharyngeal edema, but she also has hypertonicity of her neck muscles on physical exam bilaterally. Her neck pain and stiffness may be musculoskeletal in origin and would explain the radiating pattern over the patient's head superiorly. Patient reports improvement in her neck stiffness compared to yesterday. 3. Tobacco dependence. Nicotine patch was offered and refused, as the patient is trying to quit smoking. 4. Hypertension. Patient continues to be hypertensive. Pressures improving s piero this morning. Continue the patient's home medications of losartan and hydrochlorothiazide. May consider increasing patient's losartan dose should her blood pressures remain elevated. 5. Headaches. Patient is on multiple different types of pain medications. She denies headache today. 6. Hyperlipidemia. Continue her statin. 7. Bipolar / anxiety / depression. Continue her home lamotrigine, bupropion, fluoxetine, and hydroxyzine. 8. Gastroesophageal reflux disease. Continue the patient on omeprazole. 9. Deep vein thrombosis (DVT) prophylaxis: Lovenox. DISPOSITION: Discharge pending recommendations for antibiotics from Dr. Anthony and stabilization of blood pressure. VS,Fishbone, I+O VS, Fishbone, I+O Laboratory Tests 05/13/18 06:44 Red Blood Count 4.41, Mean Corpuscular Volume 87.5, Mean Corpuscular Hemoglobin 30.2, Mean Corpuscular Hemoglobin Concent 34.5, Red Cell Distribution Width 13.0, Calcium Level 8.3 L Vital Signs Date Time Temp Pulse Resp B/P (MAP) Pulse Ox O2 Delivery O2 Flow Rate FiO2 05/13/18 10:35 18 05/13/18 10:10 158/98 (118) 05/13/18 08:00 97.5 81 99 05/09/18 12:05 Room Air I&O- Last 24 Hours up to 6 AM 05/13/18 06:00 Intake Total 2740 ml Output Total 2000 ml Balance 740 ml GME ATTESTATION GME ATTESTATION My faculty preceptor for this patient encounter was physically present during the encounter and was fully available. All aspects of the patient interview, examination, medical decision making process, and medical care plan development were reviewed and approved by the faculty preceptor. The faculty preceptor is aware and concurs with the plan as stated in the body of this note and will attest to such by his/her cosignature. MIKE SORIANO DO May 13, 2018 11:49
[2018-05-13 12:00] VITALS: BP 162/100
--- NOTE | 2018-05-13 12:55 | IPNPDOC ---
Date Seen The patient was seen on 05/13/18. Progress Note Uncontrolled blood pressure c/o head pain s/p diplopia no nausea, vomiting, paresthesias plan: continue losartan hydralazine q6hrs 25mg and clonidine postpone discharge until bp is better controlled. VS, I&O, 24H, Fishbone Vital Signs/I&O Vital Signs Date Time Temp Pulse Resp B/P (MAP) Pulse Ox O2 Delivery O2 Flow Rate FiO2 05/13/18 00:55 96.6 70 20 158/102 (120) 95 05/09/18 12:05 Room Air I&O- Last 24 Hours up to 6 AM 05/13/18 06:00 Intake Total 2160 ml Output Total 1500 ml Balance 660 ml Laboratory Data 24H LABS Laboratory Tests 2 05/12/18 06:59: Nucleated Red Blood Cells % (auto) 0.0, Anion Gap 8, Glomerular Filtration Rate > 60.0, Blood Urea Nitrogen 13, Creatinine 0.76, Sodium Level 142, Potassium Level 3.2L, Chloride Level 107, Carbon Dioxide Level 27, Calcium Level 8.1L CBC/BMP Laboratory Tests 05/12/18 06:59 Red Blood Count 4.31, Mean Corpuscular Volume 89.6, Mean Corpuscular Hemoglobin 30.2, Mean Corpuscular Hemoglobin Concent 33.7, Red Cell Distribution Width 13.3, Calcium Level 8.1 L Microbiology Microbiology 05/09/18 Blood Culture - Preliminary, Resulted No Growth after 72 hours. All specime... 05/09/18 Blood Culture - Preliminary, Resulted No Growth after 72 hours. All specime... 05/09/18 MRSA Screen - Final, Complete 05/09/18 Group A Streptococcus Screen (CASPER) - Final, Complete ADAN BENSON MD May 13, 2018 04:46
[2018-05-13] MEDS ORDERED: **hydrALAZINE HCL** 25 MG TAB PO ONE (13:00)
[2018-05-13 16:00] VITALS: BP 143/88
[2018-05-13] MEDS: **hydrALAZINE HCL** 25 MG TAB PO SCH (18:19)
[2018-05-13 20:00] VITALS: BP 130/71
[2018-05-14] VITALS: BP 162/98
[2018-05-14] MEDS: AMPICILLIN SOD/SULBACTAM SOD 3 GM in D5W MINI-BAG PLUS 100 ML IV SCH ×2 (00:56→06:27)
[2018-05-14] MEDS: **hydrALAZINE HCL** 25 MG TAB PO SCH ×2 (00:57→06:28)
[2018-05-14] MEDS: IBUPROFEN 800 MG TAB PO PRN (01:03)
[2018-05-14] MEDS: PERCOCET 5MG/325MG TAB PO PRN (01:04)
[2018-05-14 05:11] VITALS: BP 168/90
[2018-05-14 08:00] VITALS: BP 162/96
[2018-05-14 08:02] LABS: HEMATOCRIT 40.6 % (36.0-47.0); HEMOGLOBIN 13.7 g/dl (12.0-15.5); MEAN CORPUSCULAR HEMOGLOBIN 29.8 pg (27.0-33.0); MEAN CORPUSCULAR HGB CONC 33.7 g/dl (32.0-36.5); MEAN CORPUSCULAR VOLUME 88.3 fl (80.0-96.0); PLATELET COUNT, AUTOMATED 166 10^3/uL (150-450)
[2018-05-14 08:24] LABS: BLOOD UREA NITROGEN 13 MG/DL (7-18); CARBON DIOXIDE LEVEL 29 MEQ/L (21-32); CHLORIDE LEVEL 102 MEQ/L (98-107); GLOMERULAR FILTRATION RATE > 60.0 (>51); GLUCOSE, FASTING 102 MG/DL (70-100); POTASSIUM SERUM 3.9 MEQ/L (3.5-5.1); SODIUM LEVEL 139 MEQ/L (136-145)
[2018-05-14] MEDS: OMEPRAZOLE 20 MG CAP PO SCH (08:29)
[2018-05-14] MEDS: ASPIRIN 81 MG ENTERIC TAB PO SCH (08:29)
[2018-05-14] MEDS: ENOXAPARIN 40 MG/0.4 ML SYRINGE (J1650) SC SCH (08:29)
[2018-05-14] MEDS: FLUoxetine 10 MG CAP PO SCH (08:29)
[2018-05-14] MEDS: buPROPion **SR TABLET** (ZYBAN) 150MG PO SCH (08:29)
[2018-05-14] MEDS: LOSARTAN 50 MG TAB PO SCH (08:30)
[2018-05-14] MEDS: SIMVASTATIN 40 MG TAB PO SCH (08:30)
[2018-05-14] MEDS: hydrOXYzine 50 MG TAB PO SCH (08:30)
[2018-05-14] MEDS: lamoTRIgine 100MG TAB PO SCH (08:31)
[2018-05-14] MEDS: DICLOFENAC EPOLAMINE 1.3 % PATCH TOP SCH (08:33)
[2018-05-14] MEDS ORDERED: AUGM875T28 PO (08:58)
[2018-05-14] MEDS ORDERED: AUTOKIT7 XX (08:58)
[2018-05-14] MEDS ORDERED: AMLO10TA PO (08:58)
[2018-05-14] MEDS ORDERED: HYDR25TA PO (08:59)
[2018-05-14] MEDS ORDERED: amLODIPine 10 MG TAB PO ONE (09:00)
[2018-05-14 09:06] VITALS: BP 162/96
--- NOTE | 2018-05-14 09:26 | IPNPDOC ---
Date Seen The patient was seen on 05/14/18. Progress Note SUBJECTIVE:anxious to go home despite [id number]. no c/o diplopia, h/a, nausea, vomiting. requesting off work slip for saturday. pt denies any dysphagia odynophagia or sob. OBJECTIVE: Vitals: See below General: Middle-aged female in no acute distress HEENT: Atraumatic, normocephalic. Extraocular eye movements are intact. Pupils equal, round and reactive to light. Posterior pharynx is free of exudate or erythema and the uvula rises symmetrically. The patient is edentulous. Tympanic membranes are visualized bilaterally and have a good cone of light without erythema or exudate behind them. There is some cerumen in the external auditory canals bilaterally. NECK: Hypertonicity is noted in the posterior aspect of the neck. I do not appreciate any lymphadenopathy. The head and neck has no appreciable masses. There is no thyromegaly. LUNGS: Clear to auscultation bilaterally. No wheezes, rhonchi or rales. HEART: Regular rate and rhythm. No murmurs, gallops or rubs. ABDOMEN: Obese, soft, normoactive bowel sounds. No tenderness to palpation in all four quadrants. EXTREMITIES: No clubbing, cyanosis or edema. Pulses are good in all four extremities. NEUROLOGIC: Awake, alert and oriented times three. LABORATORY DATA: see below ASSESSMENT: This is a 57-year-old female who is being admitted with retropharyngeal edema. She also has next stiffness and odynophagia. PLAN: Retropharyngeal edema, suspicious for retropharyngeal infection or inflammation: Dr. Wilder Anthony from ENT has been consulted and we appreciate his help. For now, we will put the patient on Unasyn every 6 hours, as most likely culprit for this may be mouth jocelynn, infectious. Differential also includes inflammatory process. Continue with muscle relaxants, pain medications and soft mechanical diet for now. Continue unasyn. Neck pain. Possibly related to the retropharyngeal edema, but she also has hypertonicity of her neck muscles on physical exam. Her neck pain and stiffness may be musculoskeletal in origin, we will provide her with a muscle relaxer as well as a heat pad. Tobacco dependence. Nicotine patch was offered and refused, as the patient is trying to quit smoking. Hypertension.uncontrolled s/p hydralazine and norvasc. continued on losartan. Headaches. Patient is on multiple different types of pain medications. She states her headache is better today. Hyperlipidemia. Continue her statin. Bipolar / anxiety / depression. Continue her home lamotrigine, bupropion, fluoxetine, and hydroxyzine. Gastroesophageal reflux disease. Continue the patient on omeprazole. Deep vein thrombosis (DVT) prophylaxis. Lovenox. DISPOSITION: if bp is immproved, may dc home. VS, I&O, 24H, Fishbone Vital Signs/I&O Vital Signs Date Time Temp Pulse Resp B/P (MAP) Pulse Ox O2 Delivery O2 Flow Rate FiO2 05/14/18 06:28 168/90 05/14/18 05:11 67 05/14/18 01:34 18 05/14/18 00:00 96.6 97 05/09/18 12:05 Room Air I&O- Last 24 Hours up to 6 AM 05/14/18 06:00 Intake Total 1900 ml Output Total 1900 ml Balance 0 ml Laboratory Data 24H LABS Laboratory Tests 2 05/14/18 07:05: CBC/BMP Microbiology Microbiology 05/09/18 Blood Culture - Final, Complete NO GROWTH AFTER 5 DAYS 05/09/18 Blood Culture - Final, Complete NO GROWTH AFTER 5 DAYS 05/09/18 MRSA Screen - Final, Complete 05/09/18 Group A Streptococcus Screen ([facility]PER) - Final, Complete ADAN BENSON MD May 14, 2018 08:01
[2018-05-14] MEDS ORDERED: **hydrALAZINE** 10 MG TAB PO SCH (12:00)
--- NOTE | 2018-05-16 13:16 | DS.PDOC ---
Discharge Summary General Date of Admission May 09, 2018 at 10:04 Date of Discharge 04/16/18 Discharge Summary ENT: DR. WILDER CLEMENS DISCHARGE DIAGNOSES: RETROPHARYNGEAL EDEMA UNCONTROLLED HYPERTENSION OBESITY BMI 35 Neck pain Tobacco dependence. Headaches. Hyperlipidemia. Bipolar / anxiety / depression. Gastroesophageal reflux disease. DISCHARGE MEDICATIONS: PLS SEE BELOW HISTORY OF PRESENTING ILLNESS: This is a 57-year-old female who presented to the emergency department last night she was unable to move her neck. She states that Saturday night she felt her neck was very stiff. She took some Aleve and went to bed. when she woke up she could not move her neck. She states the pain was atrocious. She took Aleve however that did not work so she brought herself the emergency room. She states that with this she has been having pain when she moves her jaw and pain down the right side of her head and into her neck, as well as an on and off runny and stuffy nose. She has also had a sore throat for a week and has caught herself gagging multiple times. She has had some dysphasia, as well as difficulty swallowing with a decreased appetite and some nausea for this time as well. She states that occasionally she will feel something like a lump on the side of her right neck; however, it comes and goes. She denies any new sick contacts, recent dental work as she has dentures. She denies any new foods or recent exposures. She denies any fevers, chills or night sweats, vomiting, constipation, diarrhea or abdominal pain. HOSPITAL COURSE: Retropharyngeal edema, suspicious for retropharyngeal infection or inflammation: Dr. Wilder Clemens from ENT has been consulted and we appreciate his help. For now, we will put the patient on Unasyn every 6 hours, as most likely culprit for this may be mouth jocelynn, infectious. Differential also includes inflammatory process. Continue with muscle relaxants, pain medications and soft mechanical diet for now.s/p unasyn. augmentin po as outpt to complete a 7day course. Neck pain. Possibly related to the retropharyngeal edema, but she also has hypertonicity of her neck muscles on physical exam. Her neck pain and stiffness may be musculoskeletal in origin, we will provide her with a muscle relaxer as well as a heat pad. Tobacco dependence. Nicotine patch was offered and refused, as the patient is trying to quit smoking. Hypertension.uncontrolled s/p hydralazine and norvasc. continued on losartan. outpt fu with pcp within 5 days. pt instructed giselle matthews if sbp>160 mmHg. Headaches. Patient is on multiple different types of pain medications. She states her headache is better today. Hyperlipidemia. Continue her statin. Bipolar / anxiety / depression. Continue her home lamotrigine, bupropion, fluoxetine, and hydroxyzine. Gastroesophageal reflux disease. Continue the patient on omeprazole. Deep vein thrombosis (DVT) prophylaxis. Lovenox. DISCHARGE PHYSICAL EXAMINATION: Vitals: See below General: Middle-aged female in no acute distress HEENT: Atraumatic, normocephalic. Extraocular eye movements are intact. Pupils equal, round and reactive to light. Posterior pharynx is free of exudate or erythema and the uvula rises symmetrically. The patient is edentulous. Tympanic membranes are visualized bilaterally and have a good cone of light without erythema or exudate behind them. There is some cerumen in the external auditory canals bilaterally. NECK: Normal ROM with flexion extension lateral side to side movement with adduction/abduction. I do not appreciate any lymphadenopathy. The head and neck has no appreciable masses. There is no thyromegaly. LUNGS: Clear to auscultation bilaterally. No wheezes, rhonchi or rales. HEART: Regular rate and rhythm. No murmurs, gallops or rubs. ABDOMEN: Obese, soft, normoactive bowel sounds. No tenderness to palpation in all four quadrants. EXTREMITIES: No clubbing, cyanosis or edema. Pulses are good in all four ex tremities. NEUROLOGIC: Awake, alert and oriented times three. LABORATORY DATA, IMAGING STUDIES: see below TIME SPENT ON DISCHARGEl: 30 MIN Vital Signs/I&Os Vital Signs Date Time Temp Pulse Resp B/P (MAP) Pulse Ox O2 Delivery O2 Flow Rate FiO2 05/14/18 09:06 69 162/96 05/14/18 08:00 96.2 18 97 Microbiology Microbiology 05/09/18 Blood Culture - Final, Complete NO GROWTH AFTER 5 DAYS 05/09/18 Blood Culture - Final, Complete NO GROWTH AFTER 5 DAYS 05/09/18 MRSA Screen - Final, Complete 05/09/18 Group A Streptococcus Screen ([facility]PER) - Final, Complete Discharge Medications Scheduled (Losartan Potassium/Hydroc 100-12.5 mg) 1 Tab Tab, 1 TAB PO DAILY, (Reported) Amlodipine Besylate (Norvasc) 10 Mg Tab, 10 MG PO DAILY Amoxicillin/Clavulanate Potas (Augmentin 875-125 mg) 1 Tab Tab, 875 MG PO BID Aspirin (Aspirin EC) 81 Mg Tabec, 81 MG PO DAILY, (Reported) Bupropion HCl (Bupropion HCl Sr) 150 Mg Tab, 150 MG PO BID, (Reported) Fluoxetine HCl (Prozac) 10 Mg Cap, 30 MG PO DAILY, (Reported) Hydralazine HCl (Hydralazine HCl) 25 Mg Tab, 25 MG PO BID Hydroxyzine Pamoate (Hydroxyzine Pamoate) 50 Mg Cap, 50 MG PO DAILY, (Reported) Lamotrigine (Lamotrigine) 100 Mg Tab, 200 MG PO DAILY, (Reported) Omeprazole (Omeprazole) 40 Mg Cap, 40 MG PO DAILY, (Reported) Simvastatin - High Dose (Simvastatin) 40 Mg Tab, 40 MG PO DAILY, (Reported) Scheduled PRN Hydroxyzine Pamoate (Hydroxyzine Pamoate) 50 Mg Cap, 50 MG PO DAILY PRN for ANX IETY, (Reported) Naproxen Sodium (Aleve) 220 Mg Tab, 440 MG PO BID PRN for PAIN, (Reported) Allergies Coded Allergies: Lisinopril (Verified Allergy, Unknown, swelling, 05/09/18) ADAN BENSON MD May 16, 2018 13:15
== END 2018-05-14 10:25 | disposition home or self-care (01) | DRG 115 ==
LOC: M ED 23:14 → M ED INP 05-09 10:04 → M PED 05-09 12:25
PROVIDERS: ADMIT Internal Medicine Nephrology; ATTEND General Practice
DX: J39.2 Other diseases of pharynx (principal); I10 Essential (primary) hypertension; E66.9 Obesity, unspecified; M54.2 Cervicalgia; K21.9 Gastro-esophageal reflux disease without esophagitis; F31.9 Bipolar disorder, unspecified; F41.9 Anxiety disorder, unspecified; R51 Headache; F17.200 Nicotine dependence, unspecified, uncomplicated; Z68.35 Body mass index [BMI] 35.0-35.9, adult; E78.5 Hyperlipidemia, unspecified; Z79.82 Long term (current) use of aspirin; Z79.899 Other long term (current) drug therapy; Z88.8 Allergy status to other drugs, medicaments and biological substances

== ENCOUNTER 2019-11-14 02:59 | Emergency (ER) | payer OTHER, SELFPAY ==
[~2019-11-14] VITALS: Ht 160 cm; Wt 106.5 kg
[~2019-11-14 02:59] MED LIST: ALEV220T26 PO; AMLO10TA PO; ASPI-546; ASPI81TAEC PO; AUGM875T28 PO; AUTOKIT7 XX; BUPR15TASR PO; BUPR1TAB53; FLUOXETINE; HYDR25TA PO; HYDR50CA2; HYDR50CA2 PO; LAMO100T3; LAMO100T3 PO; LOSA100T8 PO; LOSARTAN/HCT; OMEP40CA97; OMEP40CA97 PO; PROZ10CA7 PO; SIMV40TA20; SIMV40TA20 PO
[2019-11-14] MEDS ORDERED: LOSA100T50 PO (03:08)
[2019-11-14] MEDS ORDERED: MAGN250T22 PO (03:08)
[2019-11-14] MEDS ORDERED: HYDR25TAB PO (03:08)
[2019-11-14] MEDS ORDERED: methylPREDNISolone 125MG 2ML VIAL IV ONE (06:30)
[2019-11-14] MEDS ORDERED: ACETAMINOPHEN 500 MG TAB PO ONE (06:30)
--- NOTE | 2019-11-14 07:21 | REPVR ---
PROCEDURE INFORMATION: Exam: XR Left Hip with Pelvis when Performed Exam date and time: 11/14/2019 6:22 AM Age: 59 years old Clinical indication: Patient HX: Left hip pain no known injury TECHNIQUE: Imaging protocol: XR Left hip with pelvis when performed. Views: 2 or 3 views. COMPARISON: No relevant prior studies available. FINDINGS: Bones/joints: Joint spaces are maintained. There is no evidence of acute fracture. No dislocation. Soft tissues: There appears to be a small calcification in left paramedian pelvis. IMPRESSION: No evidence of fracture or dislocation. Electronically signed by: Joyce Salazar On 11/14/2019 07:20:45 AM
[2019-11-14 07:32] VITALS: BP 163/90
[2019-11-14] MEDS ORDERED: PRED10TA2 PO (07:33)
== END 2019-11-14 07:52 | disposition home or self-care (01) ==
LOC: M ED 02:59
DX: M54.32 Sciatica, left side (principal); E78.5 Hyperlipidemia, unspecified; K21.9 Gastro-esophageal reflux disease without esophagitis; F31.9 Bipolar disorder, unspecified; Z79.82 Long term (current) use of aspirin; Z79.899 Other long term (current) drug therapy; Z88.8 Allergy status to other drugs, medicaments and biological substances; Z98.84 Bariatric surgery status
CPT/HCPCS: 73502; 96374; 99284; J2930

== ENCOUNTER → 2020-06-11 | Outpatient (CLI) | payer SELFPAY ==
[~2020-06-11] MED LIST changes: +ASPI-569 PO; -ASPI81TAEC PO; +HYDR-3490 PO; +LOSA100T50 PO; +MAGN250T22 PO; +PRED10TA2 PO
== END ==
LOC: M LABSMTC 10:10
PROVIDERS: ATTEND Pediatrics
DX: Z20.822 Contact with and (suspected) exposure to COVID-19 (principal)

== ENCOUNTER 2020-08-18 16:44 | Emergency (ER) | payer OTHER ==
[~2020-08-18] VITALS: Ht 160 cm; Wt 106.9 kg
[2020-08-18 18:31] LABS: BASO % 0.3 % (0.0-1.0); EOS % 0.1 % (0.0-3.0); HEMATOCRIT 45.1 % (36.0-47.0); HEMOGLOBIN 15.2 g/dl (12.0-15.5); LYMPH % 7.8 % (24.0-44.0); MEAN CORPUSCULAR HGB CONC 33.7 g/dl (32.0-36.5); MONO # 0.4 10^3/uL (0.0-0.8); MONO % 2.9 % (2.0-8.0); NEUTROPHILS # 11.5 10^3/uL (1.5-8.5); NEUTROPHILS % 88.4 % (36.0-66.0); PLATELET COUNT, AUTOMATED 201 10^3/uL (150-450)
[2020-08-18 18:52] LABS: BLOOD UREA NITROGEN 15 MG/DL (7-18); C REACTIVE PROTEIN QUANTITATIV 0.38 MG/DL (0.00-0.30); CALCIUM LEVEL 9.2 MG/DL (8.5-10.1); CARBON DIOXIDE LEVEL 26 MEQ/L (21-32); CHLORIDE LEVEL 106 MEQ/L (98-107); CREATININE FOR GFR 0.82 MG/DL (0.55-1.30); GLOMERULAR FILTRATION RATE > 60.0 (>51); GLUCOSE, FASTING 123 MG/DL (70-100); POTASSIUM SERUM 3.9 MEQ/L (3.5-5.1); SODIUM LEVEL 140 MEQ/L (136-145); URIC ACID 4.5 MG/DL (2.6-6.0)
--- NOTE | 2020-08-18 19:17 | REPVR ---
PROCEDURE INFORMATION: Exam: US Duplex Right Lower Extremity Veins, Limited Exam date and time: 08/18/2020 6:10 PM Age: 59 years old Clinical indication: Pain; Other: Knee; Additional info: Right posterior knee pain R/O dvt TECHNIQUE: Imaging protocol: Real-time Duplex ultrasound of the Right Lower Extremity with 2-D nielsen scale, color Doppler flow and spectral waveform analysis with image documentation. Limited exam was focused on the right lower extremity veins. COMPARISON: No relevant prior studies available. FINDINGS: Right deep veins: Unremarkable. The common femoral, femoral, proximal profunda femoral and popliteal veins are patent without thrombus. Normal Doppler waveforms. Normal compressibility and/or augmentation response. Right superficial veins: Unremarkable. Saphenofemoral junction is patent without thrombus. Soft tissues: There is a prominent linear area of fluid anteromedial aspect of the knee. This is probably joint effusion and recommend MRI for further evaluation of this if clinically indicated. IMPRESSION: No evidence of deep vein thrombosis. Prominent fluid anteromedial knee may be joint effusion suggest MRI. Electronically signed by: Fabrizio Hutson On 08/18/2020 19:17:06 PM
[2020-08-18 19:27] LABS: ERYTHROCYTE SEDIMENTATION RATE 13 mm/hr (0-30)
[2020-08-18] MEDS ORDERED: predniSONE 20 MG TAB PO ONE (19:40)
[2020-08-18] MEDS ORDERED: PRED20TA PO (19:43)
[2020-08-18 20:10] VITALS: BP 151/79
[2020-08-20 17:07] LABS: Lyme Disease IgG/IgM Antibodie <0.91 ISR (0.00-0.90); Lyme Disease IgM Ab Quantitati <0.80 index (0.00-0.79)
--- NOTE | 2020-08-22 14:30 | ED PDOC ---
Post-Departure Follow-Up us of lower extremity faxed to [facility] for fu Jaden Velásquez MD Aug 22, 2020 14:30
== END 2020-08-18 20:17 | disposition home or self-care (01) ==
LOC: M ED 16:44
DX: M25.461 Effusion, right knee (principal); I10 Essential (primary) hypertension; E78.5 Hyperlipidemia, unspecified; F17.200 Nicotine dependence, unspecified, uncomplicated; K21.9 Gastro-esophageal reflux disease without esophagitis; Z98.84 Bariatric surgery status
CPT/HCPCS: 80048; 84550; 85025; 85652; 86140; 86617; 93971; 99283; J7512

== ENCOUNTER 2023-12-06 20:43 | Emergency (ER) | payer OTHER ==
[~2023-12-06] VITALS: Ht 162.6 cm; Wt 111.3 kg
[~2023-12-06 20:43] MED LIST changes: -HYDR25TA PO; +HYDR25TA88 PO; +LOSA100T46 PO; -LOSA100T50 PO; +OMEP40CA4; +OMEP40CA4 PO; -OMEP40CA97; -OMEP40CA97 PO; +PRED20TA PO
[2023-12-06 20:52] VITALS: BP 223/107; TEMP 96.8; O2SAT 98
== END 2023-12-06 21:56 | disposition left against medical advice (07) ==
LOC: M ED 20:43
DX: Z53.21 Procedure and treatment not carried out due to patient leaving prior to being seen by health care provider (principal)